=== PATIENT | male | born 1970 | race Caucasian/White ===

== ENCOUNTER 2021-01-18 23:15 | Emergency (ER) | payer OTHER ==
[2021-01-18] MEDS ORDERED: Sodium Chloride 0.9% 1000 ML 1,000 ML IV STA (23:23)
[2021-01-18 23:41] LABS: BASOPHIL % 0.2 % (0.0-0.4); Basophil (Absolute #) 0.02 (0-0.4); Eosinophil % 1.3 % (0.00-5.0); Eosinophil (Absolute #) 0.11 (0-0.5); Hematocrit 44.9 % (42-50); Hemoglobin 14.4 gm/dl (12.5-18.0); Lymphocyte (Absolute #) 1.92 (1.0-4.6); Mean Cell Volume 94.7 fl (78-100); Mean Corpuscular Hemoglobin 30.4 pg (26-32); Mean Corpuscular Hgb Concent. 32.1 g/dl (32-36); Mean Platelet Volume 9.7 fl (7.5-11.0); Monocyte (Absolute #) 0.91 (0.0-1.3); Monocytes % 10.9 % (0.0-12.0); Neutrophil % 64.6 % (36.0-66.0); Platelet Count 218 K/mm3 (150-450); Red Blood Count 4.74 M/mm3 (4.1-5.6); Red Cell Distribution Width 13.3 % (11.5-14.0); White Blood Count 8.4 K/mm3 (4.0-10.5)
--- NOTE | 2021-01-18 23:51 | ERPHSYRPT ---
- History of Present Illness Time Seen by Provider: 01/18/21 23:30 Historian: patient Patient Subjective Stated Complaint: . Triage Nursing Assessment: . Physician History: Patient is a 50-year-old male with a history of heart disease has a pacemaker defibrillator multiple cardiac risk factors presents to emergency department with complaints of chest pain that started approximately 20 minutes prior to arrival. Pain described as an ache that is localized to his right chest and radiates down his right arm. Patient is nauseous. No diaphoresis. Mild shortness of breath. Patient states he has chronic shortness of breath though this of breath appears unchanged. Symptoms are constant. Symptoms are moderate in intensity. No specific worsening improving factors. Patient voices no other complaints or concerns at this time. Patient is on Eliquis due to a history of atrial fibrillation.. He took his Eliquis medication today. Timing/Duration: today Activities at Onset: none Quality: aching Location: other (Right chest.) Chest Pain Radiation: arm Severity of Pain-Max: moderate Severity of Pain-Current: mild Modifying Factors: Improves With: nothing Associated Symptoms: nausea, No vomiting, No hurts to breathe, No weakness Prior Chest Pain/Cardiac Workup: no prior chest pain Nitro Today/Relief: no nitro taken today Aspirin Treatment Today: no aspirin today Allergies/Adverse Reactions: No Known Drug Allergies Allergy (Unverified 01/18/21 23:33) Home Medications: Amiodarone HCl 400 mg PO DAILY 01/18/21 [History] Apixaban [Eliquis] 5 mg PO BID 01/18/21 [History] Carvedilol 50 mg PO BID 01/18/21 [History] Dapagliflozin Propanediol [Farxiga] 10 mg PO DAILY 01/18/21 [History] Dapagliflozin Propanediol [Farxiga] 10 mg PO DAILY 01/18/21 [History] Eplerenone 25 mg PO DAILY 01/18/21 [History] Sacubitril/Valsartan [Entresto 49 mg-51 mg Tablet] 1 mg PO DAILY 01/18/21 [Hi story] Torsemide 20 mg [Demadex 20 mg] 40 mg PO BID 01/18/21 [History] Hx Tetanus, Diphtheria Vaccination/Date Given: Yes Hx Influenza Vaccination/Date Given: No Hx Pneumococcal Vaccination/Date Given: No Immunizations Up to Date: Yes Travel Risk - International Travel Have you traveled outside of the country in past 3 weeks: No - Coronavirus Screening Are you exhibiting any of the following symptoms?: No Close contact with a COVID-19 positive Pt in past 14-21 Days: No - Vaccine Status Have you recieved a Covid-19 vaccination: Yes [employer]: [employer] - Vaccination Dates Date of 2cond Vaccination (if applicable): 11/03/20 - Review of Systems Constitutional: No Symptoms, No Fever, No Chills Eyes: No Symptoms Ears, Nose, & Throat: No Symptoms Respiratory: No Symptoms, No Cough, No Dyspnea Cardiac: No Symptoms, No Chest Pain, No Edema, No Syncope Abdominal/Gastrointestinal: No Symptoms, No Abdominal Pain, No Nausea, No Vomiting, No Diarrhea Genitourinary Symptoms: No Symptoms, No Dysuria Musculoskeletal: No Symptoms, No Back Pain, No Neck Pain Skin: No Symptoms, No Rash Neurological: No Symptoms, No Dizziness, No Focal Weakness, No Sensory Changes Psychological: No Symptoms Endocrine: No Symptoms Hematologic/Lymphatic: No Symptoms Immunological/Allergic: No Symptoms All Other Systems: Reviewed and Negative - Past Medical History Pertinent Past Medical History: No Neurological History: No Pertinent History ENT History: No Pertinent History Cardiac History: No Pertinent History Respiratory History: No Pertinent History Endocrine Medical History: No Pertinent History Musculoskeletal History: Arthritis GI Medical History: No Pertinent History History: No Pertinent History Psycho-Social History: No Pertinent History Male Reproductive Disorders: No Pertinent History - Past Surgical History Past Surgical History: Yes Neuro Surgical History: No Pertinent History Cardiac: Internal Defibrillator, Pacemaker Respiratory: No Pertinent History Gastrointestinal: No Pertinent History Genitourinary: No Pertinent History Musculoskeletal: Orthopedic Surgery Male Surgical History: No Pertinent History Other Surgical History: HX Left Knee Surgery - Social History Smoking Status: Former smoker Exposure to second hand smoke: Yes Drug Use: none Patient Lives Alone: No - Nursing Vital Signs Nursing Vital Signs: Initial Vital Signs Temperature 98.2 F 01/18/21 23:22 Pulse Rate 74 01/18/21 23:22 Respiratory Rate 22 01/18/21 23:22 Blood Pressure 112/67 01/18/21 23:22 O2 Sat by Pulse Oximetry 98 01/18/21 23:22 Pain Scale Pain Intensity 5 - Physical Exam General Appearance: no apparent distress, alert, obese Eye Exam: PERRL/EOMI, eyes nml inspection Ears, Nose, Throat Exam: normal ENT inspection, moist mucous membranes Neck Exam: normal inspection, non-tender, supple, full range of motion Respiratory Exam: normal breath sounds, lungs clear, No respiratory distress Cardiovascular Exam: regular rate/rhythm, normal heart sounds Gastrointestinal/Abdomen Exam: soft, No tenderness, No mass Back Exam: normal inspection, No CVA tenderness, No vertebral tenderness Extremity Exam: normal inspection, normal range of motion Neurologic Exam: alert, oriented x 3, cooperative, normal mood/affect, sensation nml, No motor deficits Skin Exam: normal color, warm, dry SpO2 Interpretation: normal SpO2: 98 O2 Delivery: Room Air - Course Nursing assessment & vital signs reviewed: Yes EKG Interpreted by Me: RATE (86 paced rhythm. Incomplete right bundle branch block. There is ST segment depression anteriorly. Concerning for possible posterior STEMI. Borderline QT prolongation. QT 414.), NORMAL AXIS, prolonged QT interval, Ischemic ST-T changes - Radiology Exams Chest X-ray Interpretation: Interpreted by me (Lungs are clear. Borderline cardiomegaly. AICD/pacemaker intact intact bony thorax. No acute cardiopulmonary process.) Ordered Tests: Active Orders 24 hr Category Date Time Status Dry Wall Plasterer STAT Care 01/18/21 23:25 Active EKG-ER Only STAT Care 01/18/21 23:23 Active IV Insertion STAT Care 01/18/21 23:23 Active Pulse Oximetry (ED) STAT Care 01/18/21 23:23 Active CHEST 1 VIEW (PORTABLE) Stat Exams 01/18/21 23:25 Taken CBC W DIFF Stat Lab 01/18/21 23:30 Completed CMP Stat Lab 01/18/21 23:30 Completed NT PRO BNP Stat Lab 01/18/21 23:30 Completed TROPONIN Q3H Lab 01/18/21 23:30 Completed TROPONIN Q3H Lab 01/19/21 02:30 Ordered TROPONIN Q3H Lab 01/19/21 05:30 Ordered TROPONIN Q3H Lab 01/19/21 08:30 Ordered TROPONIN Q3H Lab 01/19/21 11:30 Ordered Medication Summary Generic Name Dose Route Start Last Admin Trade Name Freq PRN Reason Stop Dose Admin Nitroglycerin/Dextrose 250 mls @ 1.5 mls/hr 01/19/21 00:03 01/19/21 00:09 Ntg 0.2mg/Ml In D5w Glass IV 02/18/21 00:02 5 mcg/min .Q24H PRN 1.5 mls/hr CHEST PAIN Administration Protocol 5 MCG/MIN Discontinued Medications Generic Name Dose Route Start Last Admin Trade Name Darius PRN Reason Stop Dose Admin Aspirin 324 mg 01/19/21 00:04 01/19/21 00:12 Baby Aspirin 81 Mg Chew PO 01/19/21 00:05 324 mg STAT ONE Administration Sodium Chloride 1,000 mls @ 999 mls/hr 01/18/21 23:23 01/19/21 00:11 Sodium Chloride 0.9% 1000 Ml IV 01/19/21 00:23 999 mls/hr .Q1H1M STA Administration Sodium Chloride Confirm 01/19/21 00:11 Sodium Chloride 0.9% 1000 Ml Administered 01/19/21 00:12 Dose 1,000 mls @ ud .ROUTE .STK-[employer] ONE Ondansetron HCl 4 mg 01/19/21 00:27 01/19/21 00:30 Zofran 4 Mg/2 Ml Vial IV 01/19/21 00:28 4 mg STAT ONE Administration Ondansetron HCl Confirm 01/19/21 00:28 Zofran 4 Mg/2 Ml Vial Administered 01/19/21 00:29 Dose 4 mg .ROUTE .STK-MED ONE Lab/Rad Data: Laboratory Result Diagrams 01/18/21 23:30 01/18/21 23:30 Laboratory Results 01/18/21 01/18/21 01/18/21 Range/Units 23:30 23:30 23:30 WBC 8.4 (4.0-10.5) K/mm3 RBC 4.74 (4.1-5.6) M/mm3 Hgb 14.4 (12.5-18.0) gm/dl Hct 44.9 (42-50) % MCV 94.7 (78-100) fl MCH 30.4 (26-32) pg MCHC 32.1 (32-36) g/dl RDW 13.3 (11.5-14.0) % Plt Count 218 (150-450) K/mm3 MPV 9.7 (7.5-11.0) fl Gran % 64.6 (36.0-66.0) % Eos # (Auto) 0.11 (0-0.5) Absolute Lymphs (auto) 1.92 (1.0-4.6) Absolute Monos (auto) 0.91 (0.0-1.3) Lymphocytes % 23.0 L (24.0-44.0) % Monocytes % 10.9 (0.0-12.0) % Eosinophils % 1.3 (0.00-5.0) % Basophils % 0.2 (0.0-0.4) % Absolute Granulocytes 5.40 (1.4-6.9) Basophils # 0.02 (0-0.4) Sodium 141 (137-145) mmol/L Potassium 3.9 (3.5-5.1) mmol/L Chloride 99 (98-107) mmol/L Carbon Dioxide 33 H (22-30) mmol/L Anion Gap 12.9 (5-15) MEQ/L BUN 15 (9-20) mg/dL Creatinine 1.27 H (0.66-1.25) mg/dL Estimated GFR > 60.0 ML/MIN Glucose 90 (74-106) mg/dL Calcium 9.3 (8.4-10.2) mg/dL Total Bilirubin 0.20 (0.2-1.3) mg/dL AST 31 (17-59) U/L ALT 35 (0-50) U/L Alkaline Phosphatase 68 (38-126) U/L Troponin I < 0.012 (0.000-0.034) ng/mL NT-Pro-B Natriuret Pep 86.5 (0-900) pg/mL Serum Total Protein 7.3 (6.3-8.2) g/dL Albumin 4.2 (3.5-5.0) g/dL Urine Color (YELLOW) Urine Appearance (CLEAR) Urine pH (5-6) Ur Specific [place] (1.005-1.025) Urine Protein (Negative) Urine Ketones (NEGATIVE) Urine Blood (0-5) Dick/ul Urine Nitrite (NEGATIVE) Urine Bilirubin (NEGATIVE) Urine Urobilinogen (0-1) mg/dL Ur Leukocyte Esterase (NEGATIVE) Urine WBC (Auto) (0-5) /HPF Urine RBC (Auto) (0-2) /HPF U Epithel Cells (Auto) (FEW) /HPF Urine Bacteria (Auto) (NEGATIVE) /HPF Urine Mucus (Auto) (NEGATIVE) /HPF Urine Culture Reflexed (NO) Urine Glucose (NEGATIVE) mg/dL 01/18/21 Range/Units 01:14 WBC (4.0-10.5) K/mm3 RBC (4.1-5.6) M/mm3 Hgb (12.5-18.0) gm/dl Hct (42-50) % MCV (78-100) fl MCH (26-32) pg MCHC (32-36) g/dl RDW (11.5-14.0) % Plt Count (150-450) K/mm3 MPV (7.5-11.0) fl Gran % (36.0-66.0) % Eos # (Auto) (0-0.5) Absolute Lymphs (auto) (1.0-4.6) Absolute Monos (auto) (0.0-1.3) Lymphocytes % (24.0-44.0) % Monocytes % (0.0-12.0) % Eosinophils % (0.00-5.0) % Basophils % (0.0-0.4) % Absolute Granulocytes (1.4-6.9) Basophils # (0-0.4) Sodium (137-145) mmol/L Potassium (3.5-5.1) mmol/L Chloride (98-107) mmol/L Carbon Dioxide (22-30) mmol/L Anion Gap (5-15) MEQ/L BUN (9-20) mg/dL Creatinine (0.66-1.25) mg/dL Estimated GFR ML/MIN Glucose (74-106) mg/dL Calcium (8.4-10.2) mg/dL Total Bilirubin (0.2-1.3) mg/dL AST (17-59) U/L ALT (0-50) U/L Alkaline Phosphatase (38-126) U/L Troponin I (0.000-0.034) ng/mL NT-Pro-B Natriuret Pep (0-900) pg/mL Serum Total Protein (6.3-8.2) g/dL Albumin (3.5-5.0) g/dL Urine Color YELLOW (YELLOW) Urine Appearance CLEAR (CLEAR) Urine pH 5.0 (5-6) Ur Specific [place] 1.025 (1.005-1.025) Urine Protein 30 (Negative) Urine Ketones NEGATIVE (NEGATIVE) Urine Blood NEGATIVE (0-5) Dick/ul Urine Nitrite NEGATIVE (NEGATIVE) Urine Bilirubin NEGATIVE (NEGATIVE) Urine Urobilinogen NEGATIVE (0-1) mg/dL Ur Leukocyte Esterase NEGATIVE (NEGATIVE) Urine WBC (Auto) 0-2 (0-5) /HPF Urine RBC (Auto) NONE (0-2) /HPF U Epithel Cells (Auto) NONE (FEW) /HPF Urine Bacteria (Auto) NONE SEEN (NEGATIVE) /HPF Urine Mucus (Auto) SLIGHT (NEGATIVE) /HPF Urine Culture Reflexed NO (NO) Urine Glucose 50 (NEGATIVE) mg/dL - Progress Progress: improved Air Movement: good Progress Note: Initial EKG was suspicious for posterior wall CA. We attempted to call cardiology. Call Dr. Elvis Francis left a voicemail message. No return call. [facility] Spoke to ED physician Dr. Terrell who feels there is no STEMI at this time. Initial troponin returned is negative. However vin ent's chest pain started 15 to 20 minutes prior to arrival so a negative troponin is expected. We will continue to monitor patient. We do not have any cardiac beds available in our facility here at [facility]. We will make phone calls and attempt to transfer patient to facility with higher level of care. 01/19/21 00:[address] Delgado of [facility] who accepts admission at 12:48 AM. 01/19/21 01:19 Blood Culture(s) Obtained: No Antibiotics given: No Counseled pt/family regarding: lab results, diagnosis, rad results - Departure Departure Disposition: Transfer Clinical Impression: Chest pain, ACS (acute coronary syndrome) Condition: Stable Critical Care Time: No Referrals: [facility] [NON-STAFF PHY W/O PRIVILEGES] -
[2021-01-18 23:56] LABS: ALBUMIN 4.2 g/dL (3.5-5.0); ALKALINE PHOSPHATASE 68 U/L (38-126); ANION GAP 12.9 MEQ/L (5-15); BLOOD UREA NITROGEN 15 mg/dL (9-20); CHLORIDE 99 mmol/L (98-107); Calcium 9.3 mg/dL (8.4-10.2); Carbon Dioxide 33 mmol/L (22-30); Creatinine 1 1.27 mg/dL (0.66-1.25); EST GLOMERULAR FILTRATION RATE > 60.0 ML/MIN; Glucose 90 mg/dL (74-106); NT PRO BNP 86.5 pg/mL (0-900); Potassium 3.9 mmol/L (3.5-5.1); SGOT/AST 31 U/L (17-59); SGPT/ALT 35 U/L (0-50); SODIUM 141 mmol/L (137-145); Total Protein 7.3 g/dL (6.3-8.2)
[2021-01-19] MEDS ORDERED: Ntg 0.2MG/Ml in D5W GLASS*** 250 ML IV PRN (00:03)
[2021-01-19] MEDS ORDERED: Ntg 0.2MG/Ml in D5W GLASS*** 250 ML IV ONE (00:04)
[2021-01-19] MEDS ORDERED: BABY ASPIRIN 81 MG CHEW PO ONE (00:04)
[2021-01-19] MEDS ORDERED: Sodium Chloride 0.9% 1000 ML 1,000 ML ONE (00:11)
[2021-01-19] MEDS ORDERED: Zofran 4 MG/2 ML VIAL IV ONE (00:27)
[2021-01-19] MEDS ORDERED: Zofran 4 MG/2 ML VIAL ONE (00:28)
[2021-01-19 01:21] LABS: Appearance CLEAR (CLEAR); Bilirubin NEGATIVE (NEGATIVE); Blood NEGATIVE Ery/ul (0-5); Glucose 50 mg/dL (NEGATIVE); Ketones NEGATIVE (NEGATIVE); Leukocyte Esterase NEGATIVE (NEGATIVE); Mucus SLIGHT /HPF (NEGATIVE); Nitrite NEGATIVE (NEGATIVE); Protein,Urine Dip 30 (Negative); Specific Gravity 1.025 (1.005-1.025); Urobilinogen NEGATIVE mg/dL (0-1); WBC 0-2 /HPF (0-5)
[2021-01-19 01:26] LABS: Bacteria NONE SEEN /HPF (NEGATIVE)
[2021-01-19 02:22] VITALS: O2SAT 98
[2021-01-19 04:16] VITALS: BP 112/70; PULSE 70
--- NOTE | 2021-01-19 20:37 | XRAY ---
Exam: AP upright portable chest film from 01/18/2021. Comparison: None. Indication: Chest pain. Findings: The film was obtained in a lordotic projection. The lungs are hypoventilated. The heart size appears prominent, although it is somewhat magnified on this AP portable technique. Also, the lack of a deep inspiratory effort accentuates the heart size. A left-sided cardiac pacemaker/AICD is seen with [address] One lead tip is in the projection of the right atrium and the other lead tip is in the projection of the apex of the right ventricle. Although the lungs appear hypoinflated, they appear clear. No pneumothorax or pleural fluid is seen. No pulmonary vascular congestion is seen. No gross bone abnormality is seen. Impression: 1. AP lordotic underinflated chest film revealing no acute cardiopulmonary process. 2. Left-sided cardiac pacemaker/AICD is seen.
== END 2021-01-19 03:00 | disposition short-term general hospital (02) ==
LOC: ED 23:15
DX: R07.9 Chest pain, unspecified (principal); I24.9 Acute ischemic heart disease, unspecified; R11.0 Nausea; Z79.899 Other long term (current) drug therapy; Z79.01 Long term (current) use of anticoagulants; I48.91 Unspecified atrial fibrillation
CPT/HCPCS: 36000; 36415; 71045; 80053; 81001; 83880; 84484; 85025; 93005; 93041; 94760; 96374; 99285; J2405; A9270-GY